=== PATIENT | female | born 1965 | race Caucasian/White ===

== ENCOUNTER → 2016-07-25 | Outpatient (CLI) | payer OTHER | LOC: KOH-I 16:30 | DX: R06.02 Shortness of breath (principal); R60.0 Localized edema; I73.9 Peripheral vascular disease, unspecified; M79.605 Pain in left leg | CPT/HCPCS: 71020; 93971 ==

== ENCOUNTER 2016-09-09 11:36 | Emergency (ER) | payer OTHER | END 2016-09-09 12:51 | disposition home or self-care (01) | LOC: ER1 11:36 | DX: R60.0 Localized edema (principal); I10 Essential (primary) hypertension; E78.5 Hyperlipidemia, unspecified; Z88.1 Allergy status to other antibiotic agents; Z88.8 Allergy status to other drugs, medicaments and biological substances | CPT/HCPCS: 96372; 99283; J1885 ==